=== PATIENT | male | born 1960 | race Caucasian/White ===

== ENCOUNTER 2019-04-26 23:19 | Inpatient (IN) | payer MEDICARE, OTHER ==
[2019-04-26 23:49] LABS: ADD MAN DIFF? NO
[2019-04-26 23:50] LABS: WHITE BLOOD COUNT 8.2 10^3/ul (4.8-10.8)
[2019-04-26 23:50] LABS: BASOPHILS % 0.5 % (0.0-2.0); EOSINOPHILS # 0.2 10^3/ul (0.0-0.5); EOSINOPHILS % 2.8 % (0.0-7.0); HEMATOCRIT 33.6 % (42.0-52.0); HEMOGLOBIN 10.9 g/dl (14.0-18.0); LYMPHOCYTES % 24.5 % (15.0-51.0); MEAN CORPUSCULAR HEMOGLOBIN 27.7 pg (29.0-33.0); MEAN CORPUSCULAR HGB CONC 32.4 g/dl (32.0-37.0); MEAN CORPUSCULAR VOLUME 85.3 fl (82.0-101.0); MEAN PLATELET VOLUME 9.6 fl (7.4-10.4); MONOCYTE # 0.8 10^3/ul (0.3-0.9); MONOCYTES % 9.3 % (0.0-11.0); NEUTROPHIL # 5.1 10^3/ul (1.6-7.5); NEUTROPHILS % 61.7 % (39.0-77.0); PLATELET COUNT 234 10^3/UL (140-415); RED BLOOD COUNT 3.94 10^6/ul (4.70-6.10); RED CELL DISTRIBUTION WIDTH 14.5 % (11.5-14.5)
[2019-04-27 00:06] LABS: ALANINE AMINOTRANSFERASE 15 IU/L (13-69); ALBUMIN 4.3 g/dl (3.3-4.9); ALBUMIN/GLOBULIN RATIO 1.43; ALKALINE PHOSPHATASE 79 IU/L (42-121); ANION GAP 18 (5-13); ASPARTATE AMINO TRANSFERASE 22 IU/L (15-46); BILIRUBIN,INDIRECT 0.2 mg/dl (0-1.1); BILIRUBIN,TOTAL 0.2 mg/dl (0.2-1.3); BLOOD UREA NITROGEN 58 mg/dl (7-20); CALCIUM 8.1 mg/dl (8.4-10.2); CARBON DIOXIDE 14 mmol/L (21-31); CHLORIDE 111 mmol/L (97-110); CREATININE 5.15 mg/dl (0.61-1.24); Estimated GFR 12 mL/min (>60); GLUCOSE 111 mg/dl (70-220); LIPASE 170 U/L (23-300); POTASSIUM 4.8 mmol/L (3.5-5.1); SODIUM 143 mmol/L (135-144); TOTAL PROTEIN 7.3 g/dl (6.1-8.1)
[2019-04-27 00:10] LABS: INR 0.83; PROTIME 11.5 Sec (11.9-14.9); PT RATIO 0.9
[2019-04-27 00:11] LABS: PARTIAL THROMBOPLASTIN TIME 25.5 Sec (23.0-35.0)
[2019-04-27 00:17] LABS: TROPONIN-I < 0.012 ng/ml (0.000-0.120)
[2019-04-27 01:07] LABS: AMPHETAMINE/METHAMPHETAMINE Negative (NEGATIVE); BARBITURATES Negative (NEGATIVE); BENZODIAZEPINES Negative (NEGATIVE); CANNABINOIDS Positive (NEGATIVE); COCAINE Negative (NEGATIVE); OPIATES Negative (NEGATIVE)
[2019-04-27 02:06] LABS: MODE ROOM AIR; MetHgb Mixed Venous 0.1 %; Mixed Venous Base Excess -7.2 mmol/L; Mixed Venous COHb 0.3 %; Mixed Venous Oxygen Sat 80.3 mmHG (65.0-75.0); Mixed Venous Total Hemglobin 12.2 g/dl; Sample Type Blood venous; Site VENOUS LINE
[2019-04-27] MEDS: SOD CHLORIDE 0.9% 1,000 ML IV (02:42)
[2019-04-27] MEDS: DIPHTH/TET/ACEL PERTUSS (ADULT) 0.5 ML VIAL IM* (02:42)
[2019-04-27] MEDS ORDERED: SOD CHLORIDE 0.9% 1,000 ML IV (03:33)
[2019-04-27 03:50] LABS: LACTIC ACID 1.3 mmol/L (0.5-2.0)
[2019-04-27] MEDS ORDERED: ALBUTEROL/IPRATROPIUM (NEB) 3 ML AMP HHN (04:00)
[2019-04-27] MEDS ORDERED: ONDANSETRON 4 MG INJ IV (04:00)
[2019-04-27] MEDS ORDERED: NACL 0.9% 3 ML SYG IV (04:00)
[2019-04-27] MEDS ORDERED: LORAZEPAM 2 MG INJ IV ×2 (04:00)
[2019-04-27] MEDS ORDERED: ACETAMINOPHEN 325 MG TAB PO (04:00)
[2019-04-27 06:10] LABS: LACTIC ACID 1.4 mmol/L (0.5-2.0)
[2019-04-27] MEDS: NA BICARBONATE 8.4% 50 ML SYG IV (07:03)
[2019-04-27] MEDS: CHLORDIAZEPOXIDE 25 MG CAP PO (07:03)
[2019-04-27 08:16] LABS: POTASSIUM,URINE RANDOM 29.1 mmol/L (25-125)
[2019-04-27 08:16] LABS: SODIUM,URINE RANDOM 56 mmol/L (30-90)
[2019-04-27] MEDS: MULTIVITAMINS 10 ML, THIAMINE 100 MG, FOLIC ACID 1 MG in SOD CHLORIDE 0.9% 1,000 ML IVPB (08:48)
[2019-04-27] MEDS: FAMOTIDINE 20 MG INJ IV (08:49)
[2019-04-27] MEDS: SODIUM BICARBONATE (IV ADD) 75 MEQ in SOD CHLORIDE 0.45% 1,000 ML IV (11:56)
[2019-04-27] MEDS ORDERED: HYDROCODONE/APAP (10/325) TAB PO (14:30)
[2019-04-27] MEDS ORDERED: morphine 2 MG INJ IV (14:30)
[2019-04-27] MEDS: METOPROLOL (XL) 100 MG TAB PO (16:37)
[2019-04-27] MEDS: AMLODIPINE 10 MG TAB PO (16:37)
[2019-04-27] MEDS: ATORVASTATIN 40 MG TAB PO (20:13)
[2019-04-28] MEDS: SODIUM BICARBONATE (IV ADD) 75 MEQ in SOD CHLORIDE 0.45% 1,000 ML IV (01:51)
[2019-04-28 06:56] LABS: ADD MAN DIFF? NO
[2019-04-28 06:58] LABS: WHITE BLOOD COUNT 8.8 10^3/ul (4.8-10.8)
[2019-04-28 06:58] LABS: BASOPHILS % 0.5 % (0.0-2.0); EOSINOPHILS # 0.2 10^3/ul (0.0-0.5); EOSINOPHILS % 1.8 % (0.0-7.0); HEMATOCRIT 35.9 % (42.0-52.0); HEMOGLOBIN 11.7 g/dl (14.0-18.0); LYMPHOCYTES # 1.6 10^3/ul (0.8-2.9); LYMPHOCYTES % 17.7 % (15.0-51.0); MEAN CORPUSCULAR HEMOGLOBIN 27.8 pg (29.0-33.0); MEAN CORPUSCULAR HGB CONC 32.6 g/dl (32.0-37.0); MEAN CORPUSCULAR VOLUME 85.3 fl (82.0-101.0); MEAN PLATELET VOLUME 9.4 fl (7.4-10.4); MONOCYTE # 0.8 10^3/ul (0.3-0.9); MONOCYTES % 8.6 % (0.0-11.0); NEUTROPHIL # 6.2 10^3/ul (1.6-7.5); NEUTROPHILS % 70.4 % (39.0-77.0); PLATELET COUNT 219 10^3/UL (140-415); RED BLOOD COUNT 4.21 10^6/ul (4.70-6.10); RED CELL DISTRIBUTION WIDTH 14.6 % (11.5-14.5)
[2019-04-28 08:18] LABS: ALANINE AMINOTRANSFERASE 22 IU/L (13-69); ALBUMIN 4.1 g/dl (3.3-4.9); ALBUMIN/GLOBULIN RATIO 1.32; ALKALINE PHOSPHATASE 79 IU/L (42-121); ANION GAP 9 (5-13); ASPARTATE AMINO TRANSFERASE 15 IU/L (15-46); BILIRUBIN,INDIRECT 0.3 mg/dl (0-1.1); BILIRUBIN,TOTAL 0.3 mg/dl (0.2-1.3); BLOOD UREA NITROGEN 52 mg/dl (7-20); CALCIUM 8.5 mg/dl (8.4-10.2); CARBON DIOXIDE 25 mmol/L (21-31); CHLORIDE 112 mmol/L (97-110); Estimated GFR 14 mL/min (>60); GLUCOSE 107 mg/dl (70-220); MAGNESIUM 2.5 mg/dl (1.7-2.5); POTASSIUM 4.8 mmol/L (3.5-5.1); SODIUM 146 mmol/L (135-144); TOTAL PROTEIN 7.2 g/dl (6.1-8.1)
[2019-04-28] MEDS: PENTOXIFYLLINE (SR) 400 MG TAB PO (08:22)
[2019-04-28] MEDS: DULOXETINE 30 MG CAP DR PO (08:22)
[2019-04-28] MEDS: AMLODIPINE 10 MG TAB PO (08:22)
[2019-04-28] MEDS: METOPROLOL (XL) 100 MG TAB PO (08:22)
[2019-04-28] MEDS: FAMOTIDINE 20 MG INJ IV (08:22)
[2019-04-28] MEDS: MULTIVITAMINS 10 ML, THIAMINE 100 MG, FOLIC ACID 1 MG in SOD CHLORIDE 0.9% 1,000 ML IVPB (08:51)
[2019-04-28 09:57] LABS: PHOSPHORUS 4.6 mg/dl (2.5-4.9)
[2019-04-28] MEDS: ATORVASTATIN 40 MG TAB PO (20:58)
[2019-04-28] MEDS: FAMOTIDINE 20 MG TAB PO (20:59)
[2019-04-29] MEDS: CHLORDIAZEPOXIDE 25 MG CAP PO ×2 (04:00→12:00)
[2019-04-29 05:56] LABS: ANION GAP 7 (5-13); BLOOD UREA NITROGEN 46 mg/dl (7-20); CALCIUM 8.5 mg/dl (8.4-10.2); CARBON DIOXIDE 25 mmol/L (21-31); CHLORIDE 110 mmol/L (97-110); CREATININE 3.96 mg/dl (0.61-1.24); Estimated GFR 16 mL/min (>60); GLUCOSE 130 mg/dl (70-220); MAGNESIUM 2.3 mg/dl (1.7-2.5); PHOSPHORUS 4.6 mg/dl (2.5-4.9); POTASSIUM 4.5 mmol/L (3.5-5.1); SODIUM 142 mmol/L (135-144)
[2019-04-29] MEDS: PENTOXIFYLLINE (SR) 400 MG TAB PO (08:25)
[2019-04-29] MEDS: THIAMINE 100 MG TAB PO (08:25)
[2019-04-29] MEDS: AMLODIPINE 10 MG TAB PO (08:26)
[2019-04-29] MEDS: DULOXETINE 30 MG CAP DR PO (08:26)
[2019-04-29] MEDS: METOPROLOL (XL) 100 MG TAB PO (08:27)
== END 2019-04-29 16:35 | disposition home or self-care (01) | DRG 155 ==
LOC: MS1 04-29 01:55 → E/R 23:19 → TEL 04-27 01:56
DX: S02.2XXA Fracture of nasal bones, initial encounter for closed fracture (principal); N18.5 Chronic kidney disease, stage 5; N17.9 Acute kidney failure, unspecified; E87.2 Acidosis; E87.0 Hyperosmolality and hypernatremia; W18.30XA Fall on same level, unspecified, initial encounter; F10.129 Alcohol abuse with intoxication, unspecified; D63.1 Anemia in chronic kidney disease; E83.9 Disorder of mineral metabolism, unspecified; Z86.73 Personal history of transient ischemic attack (TIA), and cerebral infarction without residual deficits; Z92.3 Personal history of irradiation; Z85.46 Personal history of malignant neoplasm of prostate; F41.1 Generalized anxiety disorder
CPT/HCPCS: 36592; 70450; 70486; 71045; 72125; 76775; 80048; 80053; 80307; 82436; 82803; 83036; 83605; 83690; 83735; 84100; 84133; 84300; 84443; 84484; 85025; 85610; 85730; 87040-91; 90715; 93005; 99285-25